=== PATIENT | female | born 1955 ===

== ENCOUNTER 2016-11-04 11:19 | Day surgery (SDC) | payer OTHER ==
[2016-11-04 11:45] VITALS: BMI 26.7
[2016-11-04 12:32] VITALS: RESP 18
[2016-11-04] MEDS ORDERED: Propofol 10 mg/ml Inj (20 ML) ONE (12:39)
[2016-11-04] MEDS ORDERED: Midazolam 2 MG/2 ML VIAL ONE (12:39)
[2016-11-04] MEDS ORDERED: Bupivacaine HCl 0.5% PF (10 ml) Inj ONE (12:44)
[2016-11-04] MEDS ORDERED: Lidocaine 1% Inj (20ml) ONE (12:45)
[2016-11-04] MEDS ORDERED: methylPREDNISolone Depo 80 mg/ml Inj ONE (12:45)
[2016-11-04] MEDS ORDERED: Lactated Ringer's 1,000 ML IV ONE ×3 (12:53)
[2016-11-04] MEDS ORDERED: Lactated Ringer's 1,000 ML IV SCH (13:25)
[2016-11-04] MEDS: HYDROmorphone 0.5 mg/0.5 ml ISec IVP PRN ×3 (13:35→14:10)
--- NOTE | 2016-11-04 15:10 | RAD ---
PROCEDURE: Intraoperative Fluoroscopy. HISTORY: PAIN MANAGEMENT FINDINGS: Fluoroscopic assistance was provided. Approximately 16.4 seconds fluoroscopy time utilized. Radiation dose = 6.04 mGy.
[2016-11-04 15:15] VITALS: BP 118/65; PULSE 54; TEMP 97.4
[2016-11-04 15:16] VITALS: O2SAT 97
--- NOTE | 2016-11-04 19:26 | OP ---
PROCEDURE DATE: 11/04/2016 PREOPERATIVE DIAGNOSIS: Lumbar facet syndrome. POSTOPERATIVE DIAGNOSIS: Lumbar facet syndrome. PROCEDURE: Right L3, L4, and L5 medial branch nerve radiofrequency. ANESTHESIOLOGIST: ____. SURGEON: Dr. Peck. ANESTHESIA TYPE: Monitored anesthesia care. COMPLICATIONS: None. SPECIMEN: None. PROCEDURE: After re-discussion of the procedure with the patient including its risks, benefits, alte rnatives, outcome data, possibility of no effect or increased pain, the patient consented to the proc edure. She denies any recent infections, bleeding tendencies, or being on anticoagulants. Decision was then made to proceed to the OR. The patient was placed on the fluoroscopy table in a prone position with 2 pillows underneath her abd omen. The back was prepped and draped in a usual sterile fashion and sterile technique was adhered t o during the entire procedure. The L3, L4, and L5 medial branch nerves are located at the intersecti on of the superior articular process and the transverse process of the L3, L4 and L5 pedicles respect ively. The 3 above target areas were first visualized by turning the fluoroscopy towards the right a t approximately 15 degrees. The skin overlying the 3 above target areas was then infiltrated with 1% lidocaine using a 25 gauge needle. Subsequently, a 22 gauge 3-1/2 inch Stimuplex needle was then in crementally advanced under fluoroscopic guidance until tip of the needle made bony contact with all 3 target areas. After satisfactory positioning of all 3 needles, sensory and motor testing was tierra d out with satisfactory results. At this point, each nerve was anesthetized with 1% lidocaine. Radi ofrequency was then carried out for 3 minutes at 80 degree. At the end of the case, each nerve was t reated with a combination of 0.5% Marcaine and Depo-Medrol. At the end of the case, patient's back w as cleaned and dried and Band-Aids were applied. The patient was then transferred to the recovery area in good condition without any signs of REGISTERED PRIVATE DUTY NURSE [place] or any neurological deficits. She will have a followup in office in approximately 2-4 weeks. En-Jason Peck MD cc: [id number] TT: 11/04/2016 19:25:34 jn
== END 2016-11-04 15:40 | disposition home or self-care (01) ==
LOC: H.OPSURG 11:19
PROVIDERS: ATTEND Anesthesiology
DX: M54.08 Panniculitis affecting regions of neck and back, sacral and sacrococcygeal region (principal); J45.909 Unspecified asthma, uncomplicated; E11.9 Type 2 diabetes mellitus without complications; I10 Essential (primary) hypertension; E03.9 Hypothyroidism, unspecified

== ENCOUNTER 2017-07-23 07:55 | Observation (INO) | payer OTHER ==
[2017-07-23 08:01] VITALS: BMI 27.1
[2017-07-23 08:03] VITALS: O2SAT 100
[2017-07-23] MEDS ORDERED: Sodium Chloride 0.9% 1,000 ML IV STA (08:11)
--- NOTE | 2017-07-23 09:55 | ED PDOC ---
HPI: Back Time Seen by Provider: 07/23/17 08:11 Chief Complaint (Nursing): Back Pain History Per: Patient (presents to the ER because persistent back despite outpatient treatment by Dr. Peck. ) Past Medical History Reviewed: Historical Data, Nursing Documentation, Vital Signs Vital Signs: Last Vital Signs Temp 97.7 F 07/23/17 08:01 Pulse 74 07/23/17 08:01 Resp 20 07/23/17 08:01 BP 107/46 L 07/23/17 08:01 Pulse Ox 100 07/23/17 08:01 - Medical History PMH: Anxiety, Arthritis, Asthma, Depression, HTN, Hypercholesterolemia, Hyperthyroidism, Hypothyroidism, Osteoporosis, Rheumatoid Arthritis, Chronic Pain (neck pain) Denies: Chronic Kidney Disease - Family History Family History: States: No Known Family Hx - Immunization History Hx Tetanus Toxoid Vaccination: No Hx Influenza Vaccination: Yes Hx Pneumococcal Vaccination: No - Home Medications Home Medications: Ambulatory Orders Medication Instructions Recorded Albuterol HFA [Ventolin HFA 90 1 puff IH QID 04/06/14 mcg/actuation (8 g)] Insulin Glargine, Recombina 20 unit SUBCUT HS 04/06/14 [Lantus] Alprazolam [Xanax] 2 mg PO TID 03/25/16 Montelukast Sodium [Singulair] 10 mg PO DAILY 03/25/16 Morphine [Morphine Immediate 1 tab PO TID 03/25/16 Release Tab] metFORMIN [glucOPHAGE] 500 mg PO BID 03/25/16 oxyCODONE [oxyCODONE Immediate 30 mg PO QID 03/25/16 Release Tab] Hydrochlorothiazide [Microzide] 50 mg PO DAILY 08/12/16 Levothyroxine [Synthroid] 125 mcg PO DAILY 08/12/16 Ibuprofen [Motrin] 800 mg PO Q6 PRN #20 tab 01/15/17 - Allergies Allergies/Adverse Reactions: Allergies Allergy/AdvReac Type Severity Reaction Status Date / Time acetaminophen Allergy RASH Verified 11/04/16 11:45 codeine Allergy RASH Verified 11/04/16 11:45 Review of Systems ROS Statement: Except As Marked, All Systems Reviewed And Found Negative Constitutional: Negative for: Fever Physical Exam - Reviewed Nursing Documentation Reviewed: Yes Vital Signs Reviewed: Yes - Physical Exam Appears: Positive for: Non-toxic, No Acute Distress, Uncomfortable Head Exam: Positive for: ATRAUMATIC, NORMAL INSPECTION, NORMOCEPHALIC Skin: Positive for: Normal Color, Warm, DRY Eye Exam: Positive for: EOMI, Normal appearance, PERRL ENT: Positive for: Normal ENT Inspection Neck: Positive for: Normal, Painless ROM Cardiovascular/Chest: Positive for: Regular Rate, Rhythm Respiratory: Positive for: CNT, Normal Breath Sounds - ECG O2 Sat by Pulse Oximetry: 100 Disposition - Clinical Impression Clinical Impression: Back pain - Patient ED Disposition Is Patient to be Admitted: Yes Doctor Will See Patient In The: Hospital - Disposition Disposition: Transfer of Care Disposition Time: 09:54 Condition: FAIR - Pt Status Changed To: Hospital Disposition Of: Observation - POA Present On Arrival: None
[2017-07-23 09:58] LABS: BASO # 0.1 K/uL (0.0-0.2); BASO % 1.2 % (0.0-2.0); EOS # 0.2 K/uL (0.0-0.7); HEMOGLOBIN 12.5 g/dL (12.0-16.0); LYMPH # 1.8 K/uL (1.0-4.3); LYMPH % 25.5 % (20.0-40.0); MEAN CELL VOLUME 88.9 fl (81.0-99.0); MEAN CORPUSCULAR HGB CONC 33.8 g/dL (33.0-37.0); MONO # 0.4 K/uL (0.0-0.8); MONO % 5.1 % (0.0-10.0); NEUT # 4.6 K/uL (1.8-7.0); NEUT % 65.2 % (50.0-75.0); NRBC % 0.1 % (0.0-0.0); RBC 4.16 Mil/uL (3.80-5.20); RED CELL DISTRIBUTION WIDTH 12.8 % (11.5-14.5); WHITE BLOOD COUNT 7.1 K/uL (4.8-10.8)
[2017-07-23 10:07] LABS: BLOOD UREA NITROGEN 11 mg/dl (7-17); CALCIUM 8.9 mg/dL (8.4-10.2); GFR AFRICAN-AMERICAN > 60; GFR NON-AFRICAN AMERICAN > 60
[2017-07-23] MEDS ORDERED: Lidocaine 1% Inj (20ml) ONE (10:25)
[2017-07-23] MEDS ORDERED: methylPREDNISolone Depo 80 mg/ml Inj ONE (10:25)
[2017-07-23] MEDS ORDERED: Bupivacaine HCl 0.5% PF (10 ml) Inj ONE (10:25)
[2017-07-23] MEDS ORDERED: Midazolam 2 MG/2 ML VIAL ONE (10:33)
[2017-07-23] MEDS ORDERED: Lactated Ringer's 1,000 ML IV ONE ×2 (10:35→10:52)
[2017-07-23] MEDS ORDERED: methylPREDNISolone Depo 80 mg/ml Inj IM ONE (10:40)
[2017-07-23] MEDS ORDERED: Lidocaine 1% Inj (20ml) IJ ONE (10:40)
[2017-07-23] MEDS ORDERED: Bupivacaine HCl 0.5% PF (10 ml) Inj IJ ONE ×2 (10:40)
[2017-07-23] MEDS ORDERED: Propofol 10 mg/ml Inj (20 ML) ONE (10:44)
[2017-07-23] MEDS ORDERED: Lactated Ringer's 1,000 ML IV SCH (11:00)
[2017-07-23 12:01] VITALS: BP 112/68; PULSE 62; RESP 18; TEMP 98.1
--- NOTE | 2017-07-23 14:10 | RAD ---
PROCEDURE: Fluoroscopy up to 1 hr. HISTORY: PAIN MANAGEMENT COMPARISON: None TECHNIQUE: Standard protocol for this study/examination. FINDINGS: Total fluoroscopic time (continuous mode) utilized during the procedure: 25.5 seconds. Total exam DLP: (mGy): 4.57 IMPRESSION: Submitted images from the current procedure: 2.0
--- NOTE | 2017-07-24 00:33 | OP ---
PROCEDURE DATE: 07/23/2017 PREOPERATIVE DIAGNOSIS: Lumbar spondylosis. POSTOPERATIVE DIAGNOSIS: Lumbar spondylosis. PROCEDURE: Bilateral L3, L4, and L5 medial branch nerve block. ANESTHESIOLOGIST: Dr. Paiz. SURGEON: Cisco Chiang MD TYPE OF ANESTHESIA: Monitored anesthesia care. COMPLICATIONS: None. SPECIMEN: None. DESCRIPTION OF PROCEDURE: As follows: After we had discussion of the procedure with the patient including its risks, benefits, alternatives, outcome data, possibility of no effects, or increased pain. The patient consented to the procedure. She denies any recent infection, bleeding tendencies, or being on anticoagulants and decision was then made to proceed to the OR. The patient was placed on a fluoroscopy table in a prone position with 2 pillows underneath her abdomen. The back was prepped and draped in a usual sterile fashion and a sterile technique was adhered to during the entire procedure. The L3, L4 and L5 medial branch nerves are located at the intersection of the superior articular process and the transverse process of the L4 and L5 pedicle along with the sacral ala. The procedure was first performed on the right by turning the fluoroscopy towards the right at approximately 15 degrees. The skin overlying the three above target areas were then infiltrated with 1% lidocaine using 25-gauge needle. Subsequently a 22-gauge 2.5 inch spinal needle was then incrementally advanced under fluoroscopic guidance until the tip of needle made bony contact with all three target areas. After satisfactory positioning of the three needles, approximately 3 mL of 0.25% Marcaine and Depo-Medrol mixture was injected. The needle was removed and the same exact procedure was performed on the contralateral left side using the same medications and techniques. At the end of the case, the patient's back was cleaned and dried, and bandages were applied. The patient was then transferred to the recovery area in good condition without any signs or ELECTRIC MOTOR WINDER toxicity or any neurological deficits. She will be following in the office in approximately 2 to 4 weeks. Mariia Peck MD
== END 2017-07-23 14:30 | disposition home or self-care (01) ==
LOC: H.ER 07:55 → H.ERHOLD 09:55
PROVIDERS: ADMIT Anesthesiology; ATTEND Anesthesiology
DX: M47.816 Spondylosis without myelopathy or radiculopathy, lumbar region (principal); G89.29 Other chronic pain; I10 Essential (primary) hypertension; E03.9 Hypothyroidism, unspecified; E78.00 Pure hypercholesterolemia, unspecified; J45.909 Unspecified asthma, uncomplicated; M06.9 Rheumatoid arthritis, unspecified; M81.0 Age-related osteoporosis without current pathological fracture; F41.9 Anxiety disorder, unspecified; Z88.6 Allergy status to analgesic agent
CPT/HCPCS: 64520; 77003; 80048; 85025; 99282; G0378; J1040; J1170; J2250; J2704; J3010; J7040; J7120

== ENCOUNTER 2018-03-22 08:13 | Day surgery (SDC) | payer MEDICAID ==
[2018-03-17 14:16] VITALS: BMI 26.7
[2018-03-22] MEDS ORDERED: MethylPREDNISolone Depo 40 mg/ml Inj ONE (08:34)
[2018-03-22] MEDS ORDERED: Bupivacaine HCl 0.25% PF (30 ml) Inj ONE (08:35)
[2018-03-22] MEDS ORDERED: Iohexol 300 10 ML ONE (08:35)
[2018-03-22] MEDS ORDERED: Lidocaine 2% MPF (5 ml) Inj ONE (08:35)
[2018-03-22] MEDS ORDERED: Bupivacaine HCl 0.5% PF (30 ml) Inj ONE (08:35)
[2018-03-22] MEDS ORDERED: Propofol 10 mg/ml Inj (20 ML) ONE (08:50)
[2018-03-22] MEDS ORDERED: Midazolam 2 MG/2 ML VIAL ONE (08:50)
[2018-03-22] MEDS ORDERED: Lactated Ringer's 1,000 ML IV ONE (09:15)
[2018-03-22] MEDS ORDERED: Bupivacaine 0.5% 50 ML IJ ONE (09:20)
[2018-03-22] MEDS ORDERED: Lidocaine 2% MPF (5 ml) Inj INJ ONE (09:20)
[2018-03-22] MEDS ORDERED: methylPREDNISolone Depo 80 mg/ml Inj IM ONE (09:20)
[2018-03-22 10:50] VITALS: RESP 18
[2018-03-22 11:39] VITALS: BP 117/78; PULSE 79; TEMP 97.8
[2018-03-22 11:40] VITALS: O2SAT 97
--- NOTE | 2018-03-22 12:32 | RAD ---
Date of service: 03/22/2018 PROCEDURE: Fluoroscopy up to 1 hr. HISTORY: PAIN MANAGEMENT COMPARISON: None TECHNIQUE: Standard protocol for this study/examination. FINDINGS: Total fluoroscopic time (continuous mode) utilized during the procedure 31.5 (seconds). Total exam DLP: 9.09 (mGy). IMPRESSION: Less than 1 hr fluoroscopic assistance provided during performance of the procedure.
--- NOTE | 2018-03-22 21:39 | OP ---
PROCEDURE DATE: 03/22/2018 PREOPERATIVE DIAGNOSIS: Lumbar spondylosis. POSTOPERATIVE DIAGNOSIS: Lumbar spondylosis. PROCEDURE: Left L3, L4 and L5 medial branch nerve radiofrequency and right L3, L4 and L5 medial branch nerve block. ANESTHESIOLOGIST: Binh Zuniga MD. SURGEON: Leon Peck MD. TYPE OF ANESTHESIA: Monitored anesthesia care. COMPLICATIONS: None. SPECIMEN: None. DESCRIPTION OF PROCEDURE: As follows: After we had discussion of the procedure with the patient including its risks, benefits, alternatives, outcome data, and possibility of no effect or increased pain, the patient consented to the procedure. She denies any recent infection, bleeding tendencies, or being on anticoagulants. A decision was then made to proceed to the OR. The patient was placed on the fluoroscopy table in a prone position with two pillows underneath her abdomen. The back was prepped and draped in the usual sterile fashion, and a sterile technique was adhered to during the entire procedure. The grounding pad was then placed on the patient's left side. The L4 and L5 vertebral levels were first identified in the anteroposterior view. The L3, L4, and L5 medial branch nerves were located at the intersection of the superior articular process and transverse process of the L4 and L5 pedicles along with the sacral ala. The three above targeted areas were visualized on the left side by turning the fluoroscopy towards left, approximately 10 degrees. The skin overlying the three above targeted areas was then infiltrated with 1% lidocaine using 25-gauge needle. Subsequently, a 22-gauge 3-1/2-inch needle was then incrementally advanced under fluoroscopic guidance until the tip of needle made bony contact with the targeted areas. After satisfactory positioning of all three needles, sensory and motor testing was carried out to a satisfactory result. Then radiofrequency lesioning was carried out at 80 degrees Celsius for approximately one minute. The needle was then rotated and radiofrequency was repeated for another minute. At the end of the procedure, each nerve was treated with a combination of 0.5% Marcaine and Depo-Medrol. Then the medial branch nerve block on the right side at the corresponding levels was performed using the same medications and techniques. At the end of the case, the patient's back was cleaned and dry bandages were applied. The patient was then transported to recovery area in good condition without any signs of FOREST MANAGEMENT PROFESSOR toxicity or any neurological deficits. She will be following in the office in approximately two to four weeks. Leon-Jason Peck MD
== END 2018-03-22 11:40 | disposition home or self-care (01) ==
LOC: H.OPSURG 08:13
PROVIDERS: ATTEND Anesthesiology
DX: M47.816 Spondylosis without myelopathy or radiculopathy, lumbar region (principal); M19.90 Unspecified osteoarthritis, unspecified site; J45.909 Unspecified asthma, uncomplicated; E11.9 Type 2 diabetes mellitus without complications; I10 Essential (primary) hypertension; K21.9 Gastro-esophageal reflux disease without esophagitis
CPT/HCPCS: 64635; 64636; 82948; J1030; J1040; J1170; J2001; J2250; J2704; J3010; J7120

== ENCOUNTER 2018-05-11 09:44 | Day surgery (SDC) | payer MEDICAID ==
[2018-03-17 14:16] VITALS: BMI 26.7
[2018-05-11] MEDS ORDERED: Lactated Ringer's 1,000 ML IV ONE (09:58)
[2018-05-11] MEDS ORDERED: Midazolam 2 MG/2 ML VIAL ONE (11:07)
[2018-05-11] MEDS ORDERED: Propofol 10 mg/ml Inj (20 ML) ONE (11:07)
[2018-05-11] MEDS ORDERED: Bupivacaine 0.5% Inj(30mL) ONE (11:15)
[2018-05-11] MEDS ORDERED: Bupivacaine HCl 0.25% PF (30 ml) Inj ONE (11:15)
[2018-05-11] MEDS ORDERED: Iohexol 300 10 ML ONE (11:15)
[2018-05-11] MEDS ORDERED: methylPREDNISolone Depo 80 mg/ml Inj ONE (11:15)
[2018-05-11] MEDS ORDERED: Lidocaine 1% Inj (20ml) ONE (11:15)
[2018-05-11 12:24] VITALS: PULSE 64
--- NOTE | 2018-05-11 12:57 | RAD ---
Date of service: 05/11/2018 PROCEDURE: Fluoroscopy up to 1 hr. HISTORY: PAIN MANAGEMENT COMPARISON: None TECHNIQUE: Standard protocol for this study/examination. FINDINGS: Total fluoroscopic time (continuous mode) utilized during the procedure 22.6 seconds. Total exam DLP: 4.25 (mGy). IMPRESSION: Less than 1 hr fluoroscopic assistance provided during performance of the procedure.
[2018-05-11 13:24] VITALS: BP 114/68; RESP 18; TEMP 98.8; O2SAT 100
--- NOTE | 2018-05-11 22:17 | OP ---
PROCEDURE DATE: 05/11/2018 PREOPERATIVE DIAGNOSIS: Cervical spondylosis. POSTOPERATIVE DIAGNOSIS: Cervical spondylosis. PROCEDURE: Bilateral C3, C4, and C5 medial branch nerve blocks. ANESTHESIOLOGIST: Binh Zuniga MD SURGEON: Mariia Peck MD TYPE OF ANESTHESIA: Monitored anesthesia care. COMPLICATIONS: None. SPECIMEN: None. DESCRIPTION OF PROCEDURE: After we had a discussion of the procedure with the patient including its risks, benefits, alternatives, outcome data, possibility of no effect or increased pain, the patient consented to the procedure. She denies any recent infection, bleeding tendencies, or being on anticoagulants. Decision was then made to proceed to the OR. The patient was placed on the fluoroscopy table in prone position with two pillows underneath her abdomen. The head and neck was placed in a head positioner. The neck was prepped and draped in a usual sterile fashion. A sterile technique was adhered to during the entire procedure. The C3, C4, and C5 vertebral levels were first identified in the anteroposterior view. The medial branch nerves were located at the mid point of the facet border of the corresponding vertebrae. The procedure was first performed on the left side. The skin overlying the three above target areas was then infiltrated with 1% lidocaine using a 25-gauge needle. Subsequently, a 25-gauge 3.5-inch spinal needle was incrementally advanced under fluoroscopic guidance until tip of the needle made bony contact with all three targeted areas. After satisfactory positioning of all three needles, approximately 0.5 mL of Isovue contrast was injected to rule out intravenous uptake. After doing so, approximately 2 mL of 0.25% Marcaine and Depo-Medrol mixture was injected. The needle was then removed and the same exact procedure was performed on the contralateral left side using the same medications and techniques. At the end of the case, the patient's neck was clean and dry bandages were applied. The patient was then transferred to the recovery area in good condition without any signs of SPECIAL EFFECTS SPECIALIST toxicity or any neurological deficit. She will be following up in the office in approximately two to four weeks. Mariia Peck MD
== END 2018-05-11 14:00 | disposition home or self-care (01) ==
LOC: H.OPSURG 09:44
PROVIDERS: ATTEND Anesthesiology
DX: M47.812 Spondylosis without myelopathy or radiculopathy, cervical region (principal); M19.90 Unspecified osteoarthritis, unspecified site; J45.909 Unspecified asthma, uncomplicated; E11.9 Type 2 diabetes mellitus without complications; I10 Essential (primary) hypertension; K21.9 Gastro-esophageal reflux disease without esophagitis; R12 Heartburn
CPT/HCPCS: 64490; 64491; 82948; J1040; J1170; J2001; J2250; J2704; J3010; J7120; Q9967

== ENCOUNTER 2018-07-15 06:03 | Day surgery (SDC) | payer MEDICAID ==
[2018-03-17 14:16] VITALS: BMI 26.7
[2018-07-15 06:50] VITALS: RESP 18
[2018-07-15] MEDS ORDERED: MethylPREDNISolone Depo 40 mg/ml Inj ONE (07:34)
--- NOTE | 2018-07-15 07:34 | CP.SDSHP ---
Same Day Surgery H & P - History Proposed Procedure: Lumbar transforaminal epidural steroid injections Pre-Op Diagnosis: Lumbar radiculopathy - Allergies Allergies: Allergies No Known Allergies Allergy (Verified 07/15/18 06:39) - Physical Exam Vital Signs: Vital Signs 07/15/18 07/15/18 06:47 06:51 Temperature 98 F Pulse Rate 79 79 Respiratory 18 Rate Blood Pressure 125/61 O2 Sat by Pulse 9 L Oximetry Neuro: WNL Heart: WNL Lungs: WNL - Impression Impression: LUmbar radiculopathy Pt. Evaluated Today:Candidate for Anesthesia & Procedure: Yes Short Stay Discharge - Short Stay Discharge Admitting Diagnosis/Reason for Visit: M54.16 Disposition: HOME/ ROUTINE Referrals: FAMILY PROVIDER,NO [Primary Care Provider] -
[2018-07-15] MEDS ORDERED: Bupivacaine 0.5% Inj(30mL) ONE (07:35)
[2018-07-15] MEDS ORDERED: Lidocaine 1% Inj (20ml) ONE (07:35)
[2018-07-15] MEDS ORDERED: Iohexol 300 10 ML ONE (07:35)
[2018-07-15] MEDS ORDERED: Lactated Ringer's 1,000 ML IV ONE (07:40)
[2018-07-15] MEDS ORDERED: Midazolam 2 MG/2 ML VIAL ONE (07:54)
[2018-07-15] MEDS ORDERED: Propofol 10 mg/ml Inj (20 ML) ONE (07:54)
[2018-07-15] MEDS ORDERED: Bupivacaine HCl 0.25% PF (30 ml) Inj ONE (08:00)
[2018-07-15] MEDS ORDERED: HYDROmorphone 0.5 mg/0.5 ml ISec IVP PRN (08:20)
[2018-07-15] MEDS ORDERED: Lactated Ringer's 1,000 ML IV SCH (08:30)
--- NOTE | 2018-07-15 11:39 | RAD ---
Date of service: 07/15/2018 PROCEDURE: Fluoroscopy up to 1 hr. Epidural injection HISTORY: PAIN MANAGEMENT COMPARISON: Multiple serial examinations preceding the most recent study: 05/11/2018 TECHNIQUE: Standard protocol for this study/examination. FINDINGS: Total fluoroscopic time (continuous mode) utilized during the procedure 26.4 seconds. Total exam DLP: 12.12 (mGy). IMPRESSION: Less than 1 hr fluoroscopic assistance provided during performance of the procedure.
[2018-07-15 12:31] VITALS: TEMP 98.4
[2018-07-15 12:32] VITALS: BP 105/66; PULSE 69; O2SAT 97
--- NOTE | 2018-07-15 18:45 | OP ---
PROCEDURE DATE: 07/15/2018 PREOPERATIVE DIAGNOSIS: Lumbar radiculopathy. POSTOPERATIVE DIAGNOSIS: Lumbar radiculopathy. PROCEDURE: Left L4-L5, L5-S1 transforaminal epidural steroid injection. SURGEON: Mariia Peck MD TYPE OF ANESTHESIA: Monitored anesthesia care. ANESTHESIA ADMINISTERED BY: Stephanie Cooper MD COMPLICATIONS: None. SPECIMEN: None. DESCRIPTION OF PROCEDURE: After we had discussion of the procedure with the patient including its risks, benefits, alternatives, outcome data, possibility of no effect or increased pain, the patient consented to the procedure. She denied any recent infection, bleeding tendencies, or being on anticoagulants. A decision was then made to proceed to the OR. The patient was placed on a fluoroscopy table in a prone position with two pillows underneath her abdomen. The back was prepped and draped in a usual sterile fashion and sterile technique was adhered to during the entire procedure. The L4 and L5 vertebral levels were first identified on the anterior-posterior view. Angulation towards the left at approximately 25 degrees was used to maximize the visualization of the left L4 and L5 pedicles. The skin overlying the 6 o'clock position of both pedicles was then infiltrated with 1% lidocaine using 25-gauge needle. Subsequently, a 22-gauge 3-1/2-inch spinal needle was incrementally advanced under fluoroscopic guidance until tip of the needle made bony contact with the pedicle. The needle was then walked slightly inferiorly into the intervertebral foramen. After satisfactory positioning of both needles, approximately 0.5 mL of Omnipaque contrast was injected showing appropriate epidural nerve root spread without any signs of CSF or intravenous involvement. At this point, approximately 3 mL of 0.25% Marcaine and Depo-Medrol mixture was injected. The needle was then removed. The patient's back was cleaned and dry bandages were applied. The patient was then transferred to the recovery area in good condition without any signs of DIESEL MECHANIC HELPER toxicity or any neurological deficit. She will be following in the office in approximately two to four weeks. Mariia Peck MD
== END 2018-07-15 11:50 | disposition home or self-care (01) ==
LOC: H.OPSURG 06:03
PROVIDERS: ATTEND Anesthesiology
DX: M54.16 Radiculopathy, lumbar region (principal); M19.90 Unspecified osteoarthritis, unspecified site; J45.909 Unspecified asthma, uncomplicated; E11.9 Type 2 diabetes mellitus without complications; I10 Essential (primary) hypertension; K21.9 Gastro-esophageal reflux disease without esophagitis; E03.9 Hypothyroidism, unspecified
CPT/HCPCS: 64483; 64484; 82948; J1030; J1170; J2001; J2250; J2704; J3010; J7120; Q9967